=== PATIENT | male | born 1970 | race Two or more races ===

== ENCOUNTER 2024-05-27 07:40 | Day surgery (SDC) | payer BC, OTHER ==
[2024-05-27] MEDS ORDERED: Propofol 200 MG/20 ML SDV IV ONE (07:41)
[2024-05-27] MEDS ORDERED: Midazolam 1 MG/ML 2 ML SDV IV ONE (07:41)
[2024-05-27] MEDS ORDERED: Lidocaine 2% 5 ML SDV INJECT ONE (07:41)
[2024-05-27] MEDS ORDERED: Sodium Chloride 0.9% 10 ML Syringe FLUSH PRN (07:45)
[2024-05-27] MEDS: Lactated Ringers 1,000 ML IV SCH (08:49)
[2024-05-27] MEDS: Simethicone Drops 40 MG/0.6 ML 30 ML Bottle ONE (09:09)
== END 2024-05-27 10:42 | disposition home or self-care (01) ==
LOC: FB.SDS 07:40
PROVIDERS: ATTEND Surgery
DX: Z12.11 Encounter for screening for malignant neoplasm of colon (principal); K63.5 Polyp of colon; K57.30 Diverticulosis of large intestine without perforation or abscess without bleeding; Z87.891 Personal history of nicotine dependence; Z88.0 Allergy status to penicillin; Z91.030 Bee allergy status
CPT/HCPCS: 00811; 45384; 88305; A9270; J2250; J2704; J7120